=== PATIENT | female | born 1935 | race Caucasian/White ===

== ENCOUNTER 2016-07-15 22:17 | Emergency (ER) | payer MEDICARE, BC ==
[~2016-07-15] VITALS: Ht 165.1 cm; Wt 72.6 kg
[2016-07-15 22:20] VITALS: BP 164/70
[2016-07-15] MEDS ORDERED: LEUCOVORIN CALC10 MG PO (22:22)
[2016-07-15] MEDS ORDERED: METHOTREXATE2.5 MG PO (22:22)
[2016-07-15] MEDS ORDERED: HYDROCHLOROTHIA25 MG ORAL (22:22)
[2016-07-15] MEDS ORDERED: COZAAR50 MG ORAL (22:22)
[2016-07-15] MEDS ORDERED: ALPRAZOLAM0.25 MG ORAL (22:22)
[2016-07-15] MEDS ORDERED: FOLIC ACID1 MG ORAL (22:22)
[2016-07-15] MEDS: Ipratropium 0.02% Inh Soln 2.5ml UD HHN SCH ×3 (22:30→23:21)
[2016-07-15] MEDS ORDERED: Solu-MEDROL 125mg Inj IVP ONE (22:30)
[2016-07-15] MEDS: Albuterol ud Inhalation HHN SCH ×3 (22:31→23:21)
[2016-07-15 22:57] LABS: BASOPHILS % (AUTO) 1.1 % (0.0-2.0); EOSINOPHILS % (AUTO) 0.9 % (0.0-3.0); LYMPHOCYTES % (AUTO) 20.5 % (20.0-45.0); MEAN CORPUSCULAR HEMOGLOBIN 30.8 PG (27.0-31.0); MEAN CORPUSCULAR VOLUME 96 FL (80-99); MEAN PLATELET VOLUME 9.4 FL (6.5-10.1); NEUTROPHILS % (AUTO) 71.5 % (45.0-75.0); PLATELET COUNT 152 K/UL (150-450); RED BLOOD COUNT 4.11 M/UL (4.20-5.40); RED CELL DISTRIBUTION WIDTH 15.3 % (11.6-14.8); WHITE BLOOD COUNT 13.7 K/UL (4.8-10.8)
[2016-07-15 23:11] LABS: TROPONIN I < 0.30 ng/mL (<=0.30)
[2016-07-15 23:16] LABS: ALANINE AMINOTRANSFERASE 16 U/L (3-33); ALBUMIN/GLOBULIN RATIO 1.2 (1.0-2.7); ANION GAP 16 (5-15); ASPARTATE AMINO TRANSFERASE 29 U/L (5-40); CALCIUM 8.5 mg/dL (8.6-10.2); CARBON DIOXIDE 25 mEQ/L (20-30); CHLORIDE 101 mEQ/L (98-107); CREATININE 0.9 mg/dL (0.5-0.9); HEMOLYSIS 104; POTASSIUM 3.9 mEQ/L (3.4-4.9); SODIUM 142 mEQ/L (135-145); TOTAL PROTEIN 6.7 g/dL (6.6-8.7)
[2016-07-16 00:20] VITALS: BP 108/62
[2016-07-16] MEDS ORDERED: ALBUTEROL SULF8.5 GM INH (00:29)
[2016-07-16] MEDS ORDERED: MEDROL4 MG ORAL (00:29)
[2016-07-16] MEDS ORDERED: AZITHROMYCIN250 MG ORAL (00:29)
[2016-07-16] MEDS ORDERED: EPIPEN 2-P0.3 MG/0.3 IM (00:29)
[2016-07-16] MEDS ORDERED: Miralax 17gm pkt ORAL PRN (00:30)
[2016-07-16] MEDS ORDERED: Nitroglycerin Subl 0.4mg tab (Bottle Of 25) SL PRN (00:30)
[2016-07-16] MEDS ORDERED: DuoNeb 0.5-3(2.5)mg/3ml neb HHN PRN (00:30)
[2016-07-16] MEDS ORDERED: Mylanta II UD 30ml ORAL PRN (00:30)
[2016-07-16] MEDS ORDERED: Promethazine/Codeine 5ml UD ORAL PRN (00:30)
[2016-07-16 00:45] VITALS: BP 108/62
--- NOTE | 2016-07-16 03:02 | Emergency Room Report ---
History of Present Illness General Chief Complaint: Dyspnea/Respdistress Source: Patient, EMS Present Illness HPI 81-year-old female presents to ED for evaluation. Per EMS patient was short of breath tonight. Initial breath sounds were very reduced and patient O2 saturation was low. Patient was started on breathing treatments. Patient was starting to feel better on arrival. O2 saturations improving. Patient was also complaining of chest heaviness. Given nitroglycerin and aspirin. Denies any chest pain at this time. Denies fevers or chills. Denies cough. Denies history of asthma or COPD. States last time she had similar presentation she had an allergic reaction to antibiotics. Currently denies taking any antibiotics. No other aggravating relieving factors. Denies any other associated symptoms Allergies: Coded Allergies: SULFA (SULFONAMIDE ANTIBIOTICS) (Verified Allergy, Unknown, 07/15/16) Patient History Past Medical History: HTN Past Surgical History: none Pertinent Family History: none Social History: Denies: alcohol use, drug use, smoking Now: No Immunizations: UTD Reviewed Nursing Documentation: PMH: Agreed, PSxH: Agreed Nursing Documentation-PMH Hx Hypertension: Yes Review of Systems All Other Systems: negative except mentioned in HPI Physical Exam Vital Signs Date Time Temp Pulse Resp B/P Pulse Ox O2 Delivery O2 Flow Rate FiO2 07/15/16 22:09 115 24 190/100 99 Non-Rebreather 15.0 07/15/16 22:20 97.9 07/15/16 22:34 40 Sp02 EP Interpretation: reviewed, normal General Appearance: alert, GCS 15, mild distress Head: normocephalic Eyes: bilateral eye PERRL, bilateral eye normal inspection ENT: normal ENT inspection Neck: normal inspection Respiratory: decreased breath sounds, wheezing Cardiovascular #1: regular rate, rhythm, no edema Gastrointestinal: normal bowel sounds, non tender, soft, non-distended, no guarding, no rebound Rectal: deferred Genitourinary: no CVA tenderness Musculoskeletal: normal inspection Neurologic: alert, oriented x3, responsive, motor strength/tone normal, sensory intact, speech normal Psychiatric: normal inspection Skin: normal inspection Lymphatic: normal inspection Medical Decision Making Diagnostic Impression: Primary Impression: Respiratory distress ER Course Hospital Course 81-year-old F presenting to ED with SOB, wheezing Differential diagnoses include: Pneumonia, CHF exacerbation, pneumothorax, fluid overload Clinical course Patient placed on stretcher. On cardiac cath tech with stable vitals. After initial history and physical, I ordered nebulizer treatments. I ordered labs, IV fluids, EKG, chest x-ray, blood cultures, UA. Labs - noted leukocytosis, hemoglobin/hematocrit stable, electrolytes okay, lactate okay, troponins negative, BNP elevated CXR - cardiomegaly. haziness/atelectasis in R lung EKG - NSR, no acute changes Patient states she does feel better. No reported history of asthma or COPD. States that she is currently receiving new injections for osteoporosis. While patient is improved I do believe she requires admission given the chest heaviness. Patient states she does not want to be admitted Understands the risks of leaving. Patient has competency to make her own decisions. Signed AMA form. I feel this is a highly complex case requiring extensive working including EKG/ Rhythm strip, Xray/CT/US, Blood/urine lab work, repeat exams while in ED, and administration of strong opiates/narcotics for pain control, admission to hospital or close patient follow up. Diagnosis - respiratory distress left AMA. given Rx for zpack, albuterol, medrol dose pack, epipen. f/u with PMD Labs Test 07/15/16 22:35 White Blood Count 13.7 K/UL (4.8-10.8) Red Blood Count 4.11 M/UL (4.20-5.40) Hemoglobin 12.6 G/DL (12.0-16.0) Hematocrit 39.5 % (37.0-47.0) Mean Corpuscular Volume 96 FL (80-99) Mean Corpuscular Hemoglobin 30.8 PG (27.0-31.0) Mean Corpuscular Hemoglobin Concent 32.0 G/DL (32.0-36.0) Red Cell Distribution Width 15.3 % (11.6-14.8) Platelet Count 152 K/UL (150-450) Mean Platelet Volume 9.4 FL (6.5-10.1) Neutrophils (%) (Auto) 71.5 % (45.0-75.0) Lymphocytes (%) (Auto) 20.5 % (20.0-45.0) Monocytes (%) (Auto) 6.0 % (1.0-10.0) Eosinophils (%) (Auto) 0.9 % (0.0-3.0) Basophils (%) (Auto) 1.1 % (0.0-2.0) Sodium Level 142 mEQ/L (135-145) Potassium Level 3.9 mEQ/L (3.4-4.9) Chloride Level 101 mEQ/L (98-107) Carbon Dioxide Level 25 mEQ/L (20-30) Anion Gap 16 (5-15) Blood Urea Nitrogen 19 mg/dL (7-23) Creatinine 0.9 mg/dL (0.5-0.9) Estimat Glomerular Filtration Rate mL/min (>60) Glucose Level 176 mg/dL (74-106) Lactic Acid Level 1.10 mmol/L (0.66-2.22) Calcium Level 8.5 mg/dL (8.6-10.2) Total Bilirubin 0.5 mg/dL (0.0-1.2) Aspartate Amino Transf (AST/SGOT) 29 U/L (5-40) Alanine Aminotransferase (ALT/SGPT) 16 U/L (3-33) Alkaline Phosphatase 49 U/L (35-104) Total Creatine Kinase 83 U/L (26-140) Creatine Kinase MB 2.0 ng/mL (< 3.8) Creatine Kinase MB Relative Index 2.4 Troponin I < 0.30 ng/mL (<=0.30) Pro-B-Type Natriuretic Peptide 1550 pg/mL (0-450) Total Protein 6.7 g/dL (6.6-8.7) Albumin 3.7 g/dL (3.5-5.2) Globulin 3.0 g/dL Albumin/Globulin Ratio 1.2 (1.0-2.7) EKG Diagnostic Results Rate: tachycardiac Rhythm: NSR ST Segments: no acute changes Rhythm Strip Diag. Results EP Interpretation: yes Rhythm: NSR, no PVC's, no ectopy Chest X-Ray Diagnostic Results EP Interpretation: Yes Findings: no pneumothorax, no acute cardiopulmonary disease, other - cardiomegaly. R atelectasis Number of Views: 1 Last Vital Signs Date Time Temp Pulse Resp B/P Pulse Ox O2 Delivery O2 Flow Rate FiO2 07/16/16 00:45 97.8 108 26 108/62 100 Room Air 07/16/16 00:23 5.0 40 Status: improved Disposition: AGAINST MEDICAL ADVICE Condition: Stable Scripts Epinephrine (Epipen 2-Chet) 0.3 Mg/0.3 Ml Auto.injct 0.3 MG IM ONCE, #1 EA Prov: MY ROSARIO M.D. 07/16/16 Albuterol Sulfate* (ALBUTEROL SULFATE MDI*) 8.5 Gm Hfa.aer.ad 2 PUFF INH Q6H, #1 EA 0 Refills Prov: MY ROSARIO M.D. 07/16/16 Azithromycin* (ZITHROMAX*) 250 Mg Tablet 250 MG ORAL DAILY, #6 TAB 0 Refills Take two tablets by mouth today, then take one tablet by mouth daily for four days Prov: MY ROSARIO M.D. 07/16/16 Methylprednisolone* (MEDROL*) 4 Mg Tablet 4 MG ORAL DAILY, #10 TAB 0 Refills Prov: MY ROSARIO M.D. 07/16/16 Referrals: NON PHYSICIAN (PCP) Patient Instructions: Shortness of Breath, [id number] MY ROSARIO M.D. Jul 16, 2016 03:02
[2016-07-16] MEDS ORDERED: Heparin 5000 units/ml inj SUBQ SCH (09:00)
[2016-07-16] MEDS ORDERED: ALPRAZolam 0.25mg tab ORAL SCH (09:00)
[2016-07-16] MEDS ORDERED: Losartan 50mg tab ORAL SCH (09:00)
[2016-07-16] MEDS ORDERED: Cefepime HCl 1 GM in D5W 55 ML IV SCH (09:00)
--- NOTE | 2016-07-16 10:16 | Diagnostic Imaging Report ---
Indications: Shortness of breath Technique: Portable AP chest Findings: Comparison: None Increased interstitial markings throughout both lungs. Cardiac silhouette enlarged. Paucity of bronchovascular markings in right lung apex. Mild left pulmonary vascular redistribution. No definite pleural abnormalities. Aortic arch calcified. IMPRESSION: Bilateral interstitial disease, nonspecific, acuity indeterminate. An element of pulmonary edema in the setting of congestive heart failure must be considered. Correlate clinically. Cardiomegaly Probable emphysematous/bullous changes right lung apex Aortosclerosis
--- NOTE | 2016-07-16 11:00 | Cardiology Report ---
APPROVED REPORT EKG Measurement Heart [id number] Sinus tachycardia Biatrial enlargement Nonspecific ST and T wave abnormality Abnormal ECG
== END 2016-07-16 00:45 | disposition left against medical advice (07) ==
LOC: EDBD 22:17 → EMR 22:32
DX: R06.00 Dyspnea, unspecified (principal); I10 Essential (primary) hypertension; Z88.2 Allergy status to sulfonamides
CPT/HCPCS: 36415; 71010; 80053; 82550; 82553; 83605; 83880; 84484; 85025; 87040; 93005; 94640; 94664; 96374; 96375; 99284; J2930; J7040